=== PATIENT | female | born 1960 | race Hispanic/Latino ===

== ENCOUNTER 2020-03-11 08:00 | Day surgery (SDC) | payer BC ==
[2020-03-05 10:30] LABS: EOSINOPHILS % (AUTO) 1.2 % (0.0-8.0); HEMATOCRIT 43.6 % (36-48); LYMPHOCYTES % (AUTO) 22.6 % (21.0-51.0); MEAN CORPUSCULAR HEMOGLOBIN 32.9 pg (27.0-33.0); MEAN CORPUSCULAR HGB CONC 32.6 g/dL (32.0-36.0); MEAN CORPUSCULAR VOLUME 101.2 fL (79-99); MONOCYTES % (AUTO) 7.4 % (3.0-13.0); NEUTROPHILS % (AUTO) 68.5 % (40.0-77.0); PLATELET COUNT (AUTO) 278 K/uL (130-400); RED BLOOD CELL COUNT(AUTO) 4.31 MIL/uL (4.00-5.50); RED CELL DISTRIBUTION WIDTH 13.7 % (11.0-15.5); WHITE BLOOD COUNT (AUTO) 6.6 K/uL (4.8-10.8)
[2020-03-05 10:41] LABS: PROTHROMBIN TIME 10.7 SEC (9.6-11.6)
[2020-03-05 10:43] LABS: ALBUMIN 4.2 g/dL (3.5-5.0); BILIRUBIN,TOTAL 0.3 mg/dL (0.2-1.0); CREATININE 4.5 mg/dL (0.5-1.5); PARTIAL THROMBOPLASTIN TIME 27.1 SEC (26.3-35.5); POTASSIUM 4.4 mmol/L (3.5-5.1); TOTAL PROTEIN, SERUM 8.6 g/dL (6.0-8.3)
[2020-03-08 11:11] VITALS: BP 161/90
[2020-03-11] VITALS (17 sets, daily range): BP systolic 167–200; BP diastolic 60–81
[~2020-03-11] VITALS: Ht 147.3 cm; Wt 40.8 kg
[~2020-03-11 08:00] MED LIST: AEC81 PO; ALPR0.5T8 PO; AMLO-258 PO; ATOR40TA71 PO; CARV12.511 PO; CHOL100046 PO; FOLI0.8T2 PO; LEVE250T2 PO; LOSA100T58 PO; SEVE0.8P3 PO
[2020-03-11] MEDS: CEFAZOLIN SODIUM 1 GM VIAL IVP ONE ×2 (08:00→13:03)
[2020-03-11] MEDS ORDERED: CEFAZOLIN SODIUM 1 GM VIAL ONE (10:01)
[2020-03-11] MEDS ORDERED: 0.9%NACL 10ML VIAL ONE (10:02)
[2020-03-11] MEDS ORDERED: FENTANYL CITRATE PF 50 MCG/1 ML 2ML VIAL ONE (13:03)
[2020-03-11] MEDS ORDERED: PROPOFOL 10 MG/ML 20ML VIAL IV ONE (13:03)
[2020-03-11] MEDS ORDERED: ONDANSETRON 4MG INJ ONE (13:03)
[2020-03-11] MEDS ORDERED: LIDOCAINE PF 100MG/5ML (2%) SYRINGE 5ML ONE (13:03)
[2020-03-11] MEDS ORDERED: NEOSTIGMINE 5MG/5ML SYR IV ONE (13:03)
[2020-03-11] MEDS ORDERED: GLYCOPYRROLATE 1 MG/5 ML SYRINGE ONE (13:03)
[2020-03-11] MEDS ORDERED: SUCCINYLCHOLINE CHLORIDE 20 MG/ML 10 ML VIAL ONE (13:03)
[2020-03-11] MEDS ORDERED: DEXAMETHASONE SOD PHOSPHATE 10MG/ML 1ML VIAL ONE (13:03)
[2020-03-11] MEDS ORDERED: ROCURONIUM 10MG/1ML SYR 10 MG/ML ML ONE (13:04)
[2020-03-11] MEDS ORDERED: EPHEDRINE SULFATE 50 MG/ML AMPULE ONE (14:03)
[2020-03-11] MEDS ORDERED: ENALAPRILAT DIHYDRATE 1.25MG/ML 1ML VIAL IV ONE (14:45)
== END 2020-03-11 16:05 | disposition home or self-care (01) ==
LOC: DAH 08:00
PROVIDERS: ATTEND Student in an Organized Health Care Education/Training Program
DX: N18.6 End stage renal disease (principal); Z20.828 Contact with and (suspected) exposure to other viral communicable diseases; E11.22 Type 2 diabetes mellitus with diabetic chronic kidney disease; I12.0 Hypertensive chronic kidney disease with stage 5 chronic kidney disease or end stage renal disease; H54.8 Legal blindness, as defined in USA; Z99.2 Dependence on renal dialysis; Z86.73 Personal history of transient ischemic attack (TIA), and cerebral infarction without residual deficits; Z79.899 Other long term (current) drug therapy; Z79.82 Long term (current) use of aspirin; Z98.42 Cataract extraction status, left eye; Z98.41 Cataract extraction status, right eye; Z80.9 Family history of malignant neoplasm, unspecified; Z82.49 Family history of ischemic heart disease and other diseases of the circulatory system; Z79.01 Long term (current) use of anticoagulants
CPT/HCPCS: 36415 ×2; 36821; 71045; 80053; 82948 ×2; 84132; 85025; 85610; 85730; 93005; A4215; A4221; A4222; A4223; A4649; A4663; A4930; A6207; A6260; C1713 ×2; C9803; G0168; J0330; J0690; J1100; J1644; J2001; J2405; J2704; J2710; J3010; J3490 ×3; U0003